=== PATIENT | female | born 1945 | race Caucasian/White ===

== ENCOUNTER → 2020-10-27 | Outpatient (CLI) | payer MEDICARE ==
[~2020-10-27] MED LIST: ASPIRIN81 MG PO; ATIVAN 1MG TABLE1 MG PO; DIFLUCAN150 MG PO; FISH OIL 1,0001 EAC1 PO; GLUCOPHAGE 500500 MG PO; HYDROCODON-ACE1 EAC4 PO; IBUPROFEN600 MG PO; LOSARTAN POTAS100 MG PO; NEURONTIN600 MG PO; NORVASC5 MG PO; SYNTHROID25 MCG PO; TOPROL XL50 MG PO; TYLENOL W/CODEIN1 EA PO
== END ==
LOC: MRI 10-21 08:30
DX: C34.32 Malignant neoplasm of lower lobe, left bronchus or lung (principal); C7A.090 Malignant carcinoid tumor of the bronchus and lung; R53.1 Weakness; C79.51 Secondary malignant neoplasm of bone; M48.04 Spinal stenosis, thoracic region
CPT/HCPCS: 72157; A9577

== ENCOUNTER 2020-12-30 17:16 | Observation (INO) | payer MEDICARE, MEDICAID ==
[~2020-12-30] VITALS: Ht 160 cm; Wt 89.4 kg
[~2020-12-30 17:16] MED LIST changes: -DIFLUCAN150 MG PO
[2020-12-30 19:23] LABS: HEMOGLOBIN 10.1 gm/dl (12.3-15.3); RED BLOOD COUNT 3.27 M/UL (4.00-5.10); WHITE BLOOD COUNT 6.7 K/UL (4.5-11.0)
[2020-12-30 19:49] LABS: BUN/CREATININE RATIO 30 (0-10)
[2020-12-31 03:07] LABS: HEMOGLOBIN 9.6 gm/dl (12.3-15.3); RED BLOOD COUNT 3.07 M/UL (4.00-5.10); WHITE BLOOD COUNT 5.6 K/UL (4.5-11.0)
[2020-12-31 03:18] LABS: BUN/CREATININE RATIO 35 (0-10)
== END 2021-01-01 01:07 ==
LOC: ER1 17:16 → CDU 22:36 → MED SURG 4 22:36 → CDU 22:36 → MED SURG 4 12-31 08:26
PROVIDERS: Preventive Medicine Occupational Medicine; ADMIT Internal Medicine
DX: C7A.090 Malignant carcinoid tumor of the bronchus and lung (principal); C7B.03 Secondary carcinoid tumors of bone; C7B.02 Secondary carcinoid tumors of liver; C7B.09 Secondary carcinoid tumors of other sites; E87.2 Acidosis; E86.0 Dehydration; E11.9 Type 2 diabetes mellitus without complications; I10 Essential (primary) hypertension; E03.9 Hypothyroidism, unspecified; E66.9 Obesity, unspecified; Z87.891 Personal history of nicotine dependence; Z68.34 Body mass index [BMI] 34.0-34.9, adult; Z87.440 Personal history of urinary (tract) infections; Z74.01 Bed confinement status; Z88.1 Allergy status to other antibiotic agents; Z79.82 Long term (current) use of aspirin; Z79.84 Long term (current) use of oral hypoglycemic drugs; Z79.891 Long term (current) use of opiate analgesic; Z79.899 Other long term (current) drug therapy; Z20.822 Contact with and (suspected) exposure to COVID-19
CPT/HCPCS: 0240U; 70450; 71045; 72128; 72131; 80048; 80053; 80307; 81001; 82550; 82553; 82962; 83605; 83690; 83874; 83880; 84439; 84443; 84484; 85025; 85652; 86140; 87040; 87086; 93005; 96365; 96375; 97110; 97161; 99285; G0378; J0696

== ENCOUNTER 2021-01-07 14:13 | Emergency (ER) | payer MEDICARE ==
[2021-01-07 15:23] LABS: HEMOGLOBIN 10.4 gm/dl (12.3-15.3); RED BLOOD COUNT 3.26 M/UL (4.00-5.10); WHITE BLOOD COUNT 7.2 K/UL (4.5-11.0)
[2021-01-07 15:48] LABS: BUN/CREATININE RATIO 48 (0-10)
[2021-01-07] MEDS ORDERED: DIFLUCAN150 MG PO (20:20)
== END 2021-01-07 21:03 | disposition home or self-care (01) ==
LOC: ER1 14:13
PROVIDERS: Physician Assistant Medical
DX: K59.00 Constipation, unspecified (principal); B37.9 Candidiasis, unspecified; I10 Essential (primary) hypertension; E03.9 Hypothyroidism, unspecified; Z88.1 Allergy status to other antibiotic agents; Z79.84 Long term (current) use of oral hypoglycemic drugs; Z79.899 Other long term (current) drug therapy; Z87.891 Personal history of nicotine dependence
CPT/HCPCS: 80053; 81001; 82962; 83605; 85025; 85610; 93005; 94760; 96374; 96375; 99284; J2270; J2405